=== PATIENT | male | born 1940 ===

== ENCOUNTER 2019-04-06 15:19 | Inpatient (IN) | payer OTHER, MEDICARE, BC ==
[2019-04-06 15:54] LABS: #Basophils 0.1 thou/uL (0.0-0.2); #Eosinphils 0.5 thou/uL (0.0-0.7); #Lymphocytes 3.8 thou/uL (1.20-3.40); #Monocytes 1.5 thou/uL (0.11-0.59); #Neutrophils 8.6 thou/uL (1.40-6.50); %Basophils 0.4 % (0.0-1.0); %Eosinophils 3.6 % (0.0-10.0); %Lymphocytes 26.2 % (21.0-51.0); %Monocytes 10.2 % (0.0-10.0); %Neutrophils 59.6 % (42.0-75.0); Hemoglobin 14.4 g/dL (14.0-18.0); Mean Corpuscular HGB CONC 33.8 g/dL (32.0-36.0); Mean Corpuscular Hemoglobin 29.9 pg (27.0-31.0); Mean Corpuscular Volume 88.4 fL (78.0-98.0); Mean Platelet Volume 7.8 fL (7.4-10.4); Platelet Count 263 thou/uL (130-400); RBC Distribution Width 13.1 % (11.5-14.5); Red Blood Cell (RBC) Count 4.81 mill/uL (4.70-6.10); White Blood Cell (WBC) Count 14.4 thou/uL (4.8-10.8)
--- NOTE | 2019-04-06 16:07 | CT ---
CT BRAIN WITHOUT CONTRAST: HISTORY: Fall and syncope, dizziness FINDINGS: No evidence of acute infarct, hemorrhage, midline shift or abnormal extra-axial fluid collections is seen. The ventricular size is appropriate and the basilar cisterns are patent. The bony calvarium is intact. The visualized paranasal sinuses and mastoid air cells are well aerated. IMPRESSION: No CT evidence of acute intracranial process.
[2019-04-06 16:17] LABS: ALT (SGPT) 21 U/L (8-55); AST (SGOT) 20 U/L (5-34); Albumin 4.5 g/dL (3.4-4.8); Alkaline Phosphatase 86 U/L (40-150); Anion Gap 21 mmol/L (10-20); BUN (Urea Nitrogen) 52 mg/dL (8.4-25.7); Bilirubin, Total 0.7 mg/dL (0.2-1.2); CK (CPK) 422 U/L (30-200); Calc. Creatinine Clearance 0 mL/min (70-130); Carbon Dioxide 20 mmol/L (23-31); Chloride 100 mmol/L (98-107); Estimated GFR-MDRD 11; Globulin 3.1 g/dL (2.4-3.5); Glucose 145 mg/dL (83-110); Potassium 3.6 mmol/L (3.5-5.1); Protein, Total 7.6 g/dL (5.8-8.1); Sodium 137 mmol/L (136-145)
--- NOTE | 2019-04-06 16:36 | RAD ---
XR Chest 1 View Portable HISTORY: Chest pain FINDINGS: There are changes of median sternotomy. There is elevation the right hemidiaphragm. The hea rt size is normal. The lungs are well expanded without focal areas of consolidation, pneumothorax or pleural effusions. Bilateral humeral head prostheses are present. IMPRESSION: No radiographic evidence of acute cardiopulmonary process.
[2019-04-06 18:18] VITALS: BMI 32.8
[2019-04-06] MEDS ORDERED: HumaLOG 300 UNITS/3 ML VIAL SC PRN ×2 (18:58)
[2019-04-06] MEDS ORDERED: Dextrose 50% Abboject 50 ML SYRINGE SLOW IVP PRN (18:58)
[2019-04-06] MEDS ORDERED: Acetaminophen 325 MG TAB PO PRN (18:58)
[2019-04-06] MEDS ORDERED: hydrALAZINE 20 MG/ML VIAL SLOW IVP PRN (18:58)
[2019-04-06] MEDS ORDERED: cloNIDine 0.1 MG TAB PO PRN ×2 (18:58→20:23)
[2019-04-06] MEDS ORDERED: Dextrose 5% in Water 1,000 ML IV PRN (18:58)
[2019-04-06 20:10] LABS: Lactic Acid 0.6 mmol/L (0.5-2.2)
[2019-04-06] MEDS: Heparin 5,000 UNITS/ML VIAL SC SCH (20:31)
[2019-04-06] MEDS: Sodium Chloride 0.9% 1,000 ML IV SCH (20:31)
--- NOTE | 2019-04-07 01:20 | HP ---
PRIMARY CARE PHYSICIAN: Dr. Amos in [place]. CHIEF COMPLAINT: Feeling dizzy and weak. HISTORY OF PRESENT ILLNESS: Mr. Ramirez is a very pleasant 78-year-old gentleman who has a history of diabetes mellitus and hypertension. He was in his usual state of health until this evening when he started feeling extremely dizzy and weak. He also says his eyes were getting blurry. The dizziness was worse when he tried to stand up and he says he got up earlier this evening and his legs basically gave out and he almost fell down. Last night, he noticed he was having some leg cramping and he also says his chest was feeling a little bit tight. He says that he has been out in the heat working on a yard sale that they were preparing. Yesterday, he was unloading stuff for the yard sale pretty much all day and also he was accompanying the yard sale during the day today. He says he was drinking water throughout the whole time, but admits he had not been taking any Gatorade or Powerade or any isotonic solution. He denies any nausea, vomiting, diarrhea. No fever or chills. Due to his symptoms of almost passing out, he came to the ER where he was found to be and what appears to be acute renal failure with a creatinine of 5 and no baseline that we can see and slightly elevated white count and he is being admitted for further evaluation. REVIEW OF SYSTEMS: CONSTITUTIONAL: There has been no fevers or chills. No night sweats. No weight loss. HEENT: He denies any headache, but he did have some dizziness as well as some blurred vision. No sore throat. No rhinorrhea or neck pain. No adenopathy. PULMONARY: No hemoptysis. No cough. No wheezing. CARDIOVASCULAR: He denies any chest pain. No shortness of breath. No PND. No orthopnea. GASTROINTESTINAL: There has been no nausea, no vomiting, no diarrhea. GENITOURINARY: No urinary frequency, hematuria, no hesitancy, but he does note he had not had the need to urinate pretty much all day today. MUSCULOSKELETAL: He complains of some muscle cramping, primarily last night, in the lower extremities, and he also had some generalized weakness in the lower extremities. NEUROLOGIC: No seizures. No focal weakness. SKIN AND INTEGUMENT: He does not notice any skin changes. No rash with diabetes. There has been no polyuria, polydipsia. He says his blood glucose is generally well controlled. PAST MEDICAL HISTORY: Significant for congestive heart failure, diabetes mellitus, hypertension, and peripheral vascular disease. PAST SURGICAL HISTORY: He has had a cardiac stent placed as well as surgery in both shoulders as well as knee surgery. He has had bypass surgery and stents in the past. ALLERGIES: NO KNOWN DRUG ALLERGIES. SOCIAL HISTORY: He is . He is a nonsmoker and nondrinker. He has 3 children, and he is retired. FAMILY HISTORY: Significant for heart disease, hypertension, and cancer. CURRENT MEDICATIONS: He is on medications for diabetes and hypertension, but he does not know the names of his medicines. PHYSICAL EXAMINATION: GENERAL: He is alert and oriented. He appears to be in no acute distress. He is well developed and well nourished. VITAL SIGNS: His initial blood pressure was 72/48, however, after hydration, it is up to 104/55; heart rate 57; respiratory rate of 19; temperature is 98.2. HEENT: Pupils are equal, round, and reactive to light. Extraocular muscles are intact. His sclerae are anicteric. Throat, he has poor dentition. Dry mucous membranes. There are no oral lesions. NECK: There is no adenopathy, no bruits. LUNGS: Clear to auscultation. There is no wheezing, no rales, no rhonchi. CARDIOVASCULAR: He has a normal S1 and S2. There is no S3 or S4. No murmurs, clicks, or rubs. ABDOMEN: Obese. It is soft, nontender, and nondistended. Positive for bowel sounds. There is no rebound, no guarding, no organomegaly. EXTREMITIES: There is no clubbing or cyanosis. No edema. No calf tenderness. No joint effusions. NEUROLOGIC: His cranial nerves 2 through 12 are intact, and his muscle strength is 5/5 in both his upper and lower extremities. SKIN AND INTEGUMENT: There is no skin changes and no rash. LABORATORY DATA: White blood cell count is 14.4, hemoglobin 14.4, hematocrit is 42.5, and platelet count is 263. Sodium 137, potassium 3.6, chloride is 100, CO2 is 20, BUN of 52, creatinine of 5.03, glucose is 145. Lactic acid was 2.3. Creatine kinase is 422. Troponin is 0.010. He had a CT scan done in the ER in which there was no acute intracranial process and that is by my reading. On his chest x-ray, he had evidence of sternotomy wires in place. Heart size looks normal, and there is no evidence of any effusion or infiltrate. ASSESSMENT: 1. This is a pleasant 78-year-old gentleman who presents to the emergency room, feeling dizzy and weak and had a presyncopal episode. He was found to be hypotensive and in acute renal failure. This is likely related to prerenal azotemia. He will be admitted to the medical floor. He has already been given 3 L of fluids in the ER. We will continue IV saline administration and monitor his renal function. We will also get a renal ultrasound as a precaution to rule out obstruction. If his renal function does not improve as expected, then a Nephrology consult will be obtained. 2. Hypertension. We will need to reconcile and restart his antihypertensive medications and we will also place him on p.r.n. medicines for blood pressure. If he is on an ABILIO inhibitor, this will need to be held. 3. Diabetes mellitus. Again, we will need to reconcile and restart medications as appropriate and we will also continue sliding scale insulin. 4. The patient also will be placed on deep venous thrombosis as well as gastrointestinal prophylaxis. Job ID: [id number]
[2019-04-07] MEDS: Sodium Chloride 0.9% 1,000 ML IV SCH ×4 (03:23→19:53)
[2019-04-07 05:27] LABS: #Eosinphils 0.5 thou/uL (0.0-0.7); #Lymphocytes 2.6 thou/uL (1.20-3.40); #Monocytes 0.9 thou/uL (0.11-0.59); #Neutrophils 5.1 thou/uL (1.40-6.50); %Basophils 0.5 % (0.0-1.0); %Eosinophils 5.7 % (0.0-10.0); %Lymphocytes 28.8 % (21.0-51.0); %Monocytes 9.3 % (0.0-10.0); %Neutrophils 55.7 % (42.0-75.0); Hemoglobin 12.6 g/dL (14.0-18.0); Mean Corpuscular HGB CONC 32.8 g/dL (32.0-36.0); Mean Corpuscular Hemoglobin 29.3 pg (27.0-31.0); Mean Corpuscular Volume 89.4 fL (78.0-98.0); Mean Platelet Volume 8.1 fL (7.4-10.4); Platelet Count 202 thou/uL (130-400); RBC Distribution Width 12.9 % (11.5-14.5); Red Blood Cell (RBC) Count 4.28 mill/uL (4.70-6.10); White Blood Cell (WBC) Count 9.2 thou/uL (4.8-10.8)
[2019-04-07 05:50] LABS: Anion Gap 10 mmol/L (10-20); BUN (Urea Nitrogen) 40 mg/dL (8.4-25.7); Calc. Creatinine Clearance 38 mL/min (70-130); Carbon Dioxide 23 mmol/L (23-31); Chloride 107 mmol/L (98-107); Estimated GFR-MDRD 28; Glucose 102 mg/dL (83-110); Potassium 3.3 mmol/L (3.5-5.1); Sodium 137 mmol/L (136-145)
--- NOTE | 2019-04-07 07:33 | ULT ---
RENAL ULTRASOUND: CLINICAL HISTORY: Acute renal failure. FINDINGS: No hydronephrosis of either kidney. Left renal length is 12 cm and right renal length is 11.2 cm. W ithin the left kidney there is a focus of decreased echogenicity, approximately 3 x 3.6 cm indicative of a cyst. The urinary bladder is grossly unremarkable with moderate distention. Ureteral jets are elicited using Doppler color flow. IMPRESSION: 1. Left renal cyst. 2. No acute abnormalities identified. POS: ARIK
[2019-04-07] MEDS: Heparin 5,000 UNITS/ML VIAL SC SCH ×3 (08:08→19:55)
[2019-04-07] MEDS ORDERED: Gabapentin 400 MG CAP PO SCH ×2 (13:15→21:00)
[2019-04-07] MEDS: Gabapentin 400 MG CAP PO SCH (14:56)
--- NOTE | 2019-04-07 18:39 | PDOC.HOSPP ---
- Subjective Encounter Date: 04/07/19 Encounter Time: 18:37 Subjective: Mr. Ramirez was seen today in follow-up of acute renal failure. He does not have any complaints today. - Objective Vital Signs & Weight: Vital Signs (12 hours) Temp Pulse Resp BP BP Pulse Ox 04/07/19 16:03 97.9 F 70 18 140/77 98 04/07/19 11:21 97.8 F 64 18 112/73 95 04/07/19 08:01 98.1 F 68 18 131/78 94 L 04/07/19 08:00 94 L Weight Weight 222 lb 9 oz I&O: 04/06/19 04/07/19 04/08/19 06:59 06:59 06:59 Intake Total 1176 1100 Output Total 1100 Balance 76 1100 Result Diagrams: 04/07/19 05:15 04/07/19 05:15 Additional Labs: Accuchecks 04/07/19 04/07/19 04/07/19 16:04 11:22 05:13 POC Glucose 118 H 128 H 99 04/06/19 20:45 POC Glucose 111 H ROS - Medication Medications: Active Medications Generic Name Dose Route Start Last Admin Trade Name Freq PRN Reason Stop Dose Admin Acetaminophen 650 mg 04/06/19 18:58 04/06/19 20:38 Tylenol PO 650 mg Q4H PRN Administration Headache/Fever/Mild Pain (1-3) Gabapentin 400 mg 04/07/19 15:00 04/07/19 14:56 Neurontin PO 400 mg 0900,1500 SHANTA Administration Heparin Sodium (Porcine) 5,000 units 04/06/19 21:00 04/07/19 14:55 Heparin SC 5,000 units TID SHANTA Administration Sodium Chloride 1,000 mls @ 75 mls/hr 04/07/19 13:03 04/07/19 14:55 Normal Saline 0.9% IV 1,000 mls .[id number] SHANTA Administration - Exam Eye: PERRL, anicteric sclera Heart: RRR, no murmur, no gallops, no rubs, normal peripheral pulses Respiratory: CTAB, no wheezes, no rales, no ronchi, normal chest expansion, no tachypnea, normal percussion Gastrointestinal: soft, non-tender, non-distended, normal bowel sounds, no palpable masses, no hepatomegaly Extremities: no cyanosis, no clubbing, no edema Neurological: normal sensation to touch, no weakness, no focal deficits, no new deficit Hosp A/P (1) Acute renal failure Status: Acute (2) Hypertension Code(s): I10 - ESSENTIAL (PRIMARY) HYPERTENSION Status: Chronic (3) Diabetes mellitus type 2 in obese Code(s): E11.69 - TYPE 2 DIABETES MELLITUS WITH OTHER SPECIFIED COMPLICATION; E66.9 - OBESITY, UNSPECIFIED Status: Chronic (4) Peripheral vascular disease Code(s): I73.9 - PERIPHERAL VASCULAR DISEASE, UNSPECIFIED Status: Chronic - Plan * Acute renal failure- continue IV hydration, but will cut the fluids back some * HTN- blood pressure is stable, will re-start his home medications with the exception of Lisinopril * DM- blood glucose is stable * Renal ultrasound results noted * Re-check labs in am, and hopefully home tomorrow if he has continued improvement
[2019-04-07] MEDS ORDERED: Potassium Chloride 20 MEQ TAB PO SCH (18:45)
[2019-04-07] MEDS: Fluticasone Propionate Nasal Spray 16 gm Bottle NASAL SCH (19:54)
[2019-04-07] MEDS ORDERED: rOPINIRole HCl 0.5 MG TAB PO SCH (21:00)
[2019-04-07] MEDS ORDERED: Fluticasone Propionate Nasal Spray 16 gm Bottle NASAL SCH (21:00)
[2019-04-08 06:18] LABS: Anion Gap 9 mmol/L (10-20); BUN (Urea Nitrogen) 17 mg/dL (8.4-25.7); Calc. Creatinine Clearance 110 mL/min (70-130); Calcium 8.4 mg/dL (7.8-10.44); Carbon Dioxide 25 mmol/L (23-31); Chloride 111 mmol/L (98-107); Estimated GFR-MDRD Greater than 90; Glucose 102 mg/dL (83-110); Potassium 3.9 mmol/L (3.5-5.1); Sodium 141 mmol/L (136-145)
[2019-04-08] MEDS: Gabapentin 400 MG CAP PO SCH (08:29)
[2019-04-08] MEDS: Heparin 5,000 UNITS/ML VIAL SC SCH (08:30)
[2019-04-08] MEDS: Fluticasone Propionate Nasal Spray 16 gm Bottle NASAL SCH (08:30)
[2019-04-08] MEDS ORDERED: Non-Formulary Item 1 EACH (Carvedilol [Carvedilol] 1 TAB) PO SCH (09:00)
[2019-04-08] MEDS ORDERED: Tamsulosin HCl 0.4 MG CAP PO SCH ×2 (09:00)
[2019-04-08] MEDS ORDERED: Atorvastatin Calcium 10 MG TAB PO SCH (09:00)
[2019-04-08] MEDS ORDERED: Carvedilol 6.25 MG TAB PO SCH (09:00)
[2019-04-08] MEDS ORDERED: Aspirin 81 mg Enteric Coated Tablet PO SCH (09:00)
[2019-04-08] MEDS ORDERED: Clopidogrel Bisulfate 75 MG TAB PO SCH ×2 (09:00)
[2019-04-08 11:07] VITALS: BP 109/71; TEMP 98.1
--- NOTE | 2019-04-08 23:37 | DIS ---
DATE OF ADMISSION: 04/06/2019 DATE OF DISCHARGE: 04/08/2019 PRIMARY CARE PROVIDER: Unknown. DISCHARGE DIAGNOSES: 1. Acute kidney injury. 2. Dehydration. 3. Left renal cyst. CONDITION OF PATIENT ON THE DAY OF DISCHARGE: Stable: I assessed Mr. Ramirez on the day of discharge. He denies any chest pain or shortness of breath. Vital signs are stable. S1 and S2 are heard, regular. Lungs are clear to auscultation bilaterally. DISCHARGE MEDICATIONS: 1. Aspirin 81 mg daily. 2. Lipitor 10 mg daily. 3. Coreg 12.5 mg daily. 4. Plavix 75 mg daily. 5. Flonase 1 spray 2 times a day. 6. Gabapentin 400 mg daily. 7. Hydrochlorothiazide 12.5 mg daily. 8. Lisinopril 10 mg 2 times a day. 9. Metformin 500 mg 2 times a day. 10. Ropinirole 0.5 mg at bedtime. 11. Tamsulosin 0.4 mg daily. HOSPITAL COURSE: Mr. Ramirez is a pleasant 78-year-old gentleman, who was admitted to [facility] for prerenal azotemia and acute kidney injury in the context of working outside in hot weather. He improved with intravenous fluids. Nephrotoxic medications were held. His renal function normalized. He is being discharged home in a stable condition. He had a renal ultrasound, which showed left renal cyst. He is advised to follow up with his primary care provider regarding this finding. On the day of discharge, he has sodium 141, potassium 3.9, and creatinine 0.79. Many thanks for allowing me to participate in your patient's care. Please feel free to contact me with any questions or concerns. FOLLOW UP: With primary care provider in 3-5 days. DISCHARGE DESTINATION: Home. TIME SPENT: Total amount of time spent coordinating this discharge: 32 minutes. Job ID: [id number] [id number]
== END 2019-04-08 13:17 | disposition home or self-care (01) | DRG 684 ==
LOC: ERS 15:19 → T4-B 16:30
PROVIDERS: ADMIT Internal Medicine; ATTEND Internal Medicine
DX: N17.9 Acute kidney failure, unspecified (principal); E11.51 Type 2 diabetes mellitus with diabetic peripheral angiopathy without gangrene; I11.0 Hypertensive heart disease with heart failure; E86.0 Dehydration; N28.1 Cyst of kidney, acquired; I50.9 Heart failure, unspecified; Z79.82 Long term (current) use of aspirin; Z79.01 Long term (current) use of anticoagulants; Z79.899 Other long term (current) drug therapy; Z79.84 Long term (current) use of oral hypoglycemic drugs
CPT/HCPCS: 36415; 36416; 70450; 71045; 76770; 80048; 80053; 82550; 83605; 83880; 84484; 85025; 93005; 94760; J1644